=== PATIENT | female | born 1975 | race Caucasian/White ===

== ENCOUNTER 2024-05-10 08:43 | Emergency (ER) | payer SELFPAY ==
[2024-05-10] VITALS (16 sets, daily range): BP systolic 96–119; BP diastolic 58–74; PULSE 71–82; RESP 14–19; TEMP 36.4; O2SAT 99–100
--- NOTE | ~2024-05-10 | XR_ITS ---
EXAMINATION: XR chest 2V 05/10/2024 10:08 INDICATION: Cough. Syncope. PROCEDURE: 2 view chest COMPARISON: 04/27/2017 FINDINGS: The lungs are clear. The cardiomediastinal silhouette is within normal limits. There are no pleural effusions. There is no pneumothorax suspected. IMPRESSION: 1: NO ACUTE CARDIOPULMONARY DISEASE. Reviewed, dictated and finalized at location B. SETTER
--- NOTE | 2024-05-10 08:49 | ECG_ITS ---
Test Date: 2024-05-10 08:55:15 Measurements Intervals [place] Rate: 65 P: 53 OR: 182 QRS: -39 QRSD: 112 T: 32 QT: 438 QTc: 456 Interpretive Statements SINUS RHYTHM LEFT AXIS DEVIATION [QRS AXIS < -30] LOW QRS VOLTAGE IN PRECORDIAL LEADS [QRS DEFLECTION < 1.0 mV IN CHEST LEADS] INCOMPLETE RIGHT BUNDLE BRANCH BLOCK [90+ ms QRS DURATION, TERMINAL R IN V1/V2, 40+ ms S IN I/aVL/V4/V5/V6] No previous ECG available for comparison Electronically Signed On 05-11-2024 11:49:18 [employer] by Selma Drew M.D.
--- NOTE | 2024-05-10 09:01 | ED_ITS ---
HPI - Epistaxis General Chief complaint: Epistaxis Stated complaint: bloody nose followed by a syncopal episode? Time Seen by Provider: 05/10/24 09:01 Source: patient Mode of arrival: ambulatory Limitations: no limitations History of Present Illness HPI Narrative: Patient is a 48 y/o female who presents to the ED with c/o epistaxis and syncope. Patient reports she developed epistaxis from her right nare this morning after dropping her child off at school. She notes this is not abnormal for her in the wintertime when her nose gets dried out. States there was significant amount of blood and she began feeling very nauseous and lightheaded. She does note that she often gets queasy with the sight of blood. She pulled over to the side of the road where she then had a syncopal episode. Her son in the backseat stated she only lost consciousness for couple of seconds. Patient then prompted here. She states she feels fatigued currently, but otherwise denies further dizziness or lightheadedness. Her epistaxis has since resolved. Denies chest pain, significant headache, focal weakness or numbness. Related Data Allergies Allergy/AdvReac Type Severity Reaction Status Date / Time latex Allergy Unknown Unknown Verified 05/10/24 09:00 levothyroxine sodium Allergy Unknown Unknown Verified 05/10/24 09:00 Sulfa (Sulfonamide Allergy Unknown Unknown Verified 05/10/24 09:00 Antibiotics) sulfanilamide Allergy Unknown Unknown Verified 05/10/24 09:00 Review of Systems 2 Review of Systems: All systems reviewed & are unremarkable except as noted in HPI. All systems reviewed & are unremarkable except as noted in HPI and below PMFSH Family History Family History Mother Family history of mental disorder Depression Hypertension Family history of arthritis Family history of osteoporosis Father Family history of malignant neoplasm of esophagus Family history of malignant neoplasm Patient's father is Social History Social History Smoking status: Never smoker Second hand tobacco smoke exposure: No Smoking end date: 05/23/01 Alcohol intake: current Exam 2 Narrative: GENERAL: Well appearing, well-nourished, non-toxic, in no acute distress. HEAD: Normocephalic, atraumatic. ENT: Dried blood around R nare. No active epistaxis. No septal hematoma. RESPIRATORY: Airway patent, respirations nonlabored. Clear to auscultation bilaterally, no rales, rhonchi, wheezing. CARDIOVASCULAR: Regular rate and rhythm without murmurs, rubs, or gallops. MUSCULOSKELETAL: Moves all extremities. No gross deformities. SKIN: Warm, dry, normal color. NEURO: A&O X3. Speech clear. Cranial nerves II-XII grossly intact. Steady gait. No ataxic movements. No focal deficits. PSYCHIATRIC: Appropriate mood and affect. Normal interaction. Course Vital Signs Vital signs: Vital Signs Temperature 97.5 F L 05/10/24 08:49 Pulse Rate 76 05/10/24 08:49 Respiratory Rate 17 05/10/24 08:49 Blood Pressure 99/61 L 05/10/24 08:49 Pulse Oximetry 100 05/10/24 08:49 Oxygen Delivery Room Air 05/10/24 08:49 Temperature 97.5 F L 05/10/24 08:49 Pulse Rate 79 05/10/24 10:36 Respiratory Rate 18 05/10/24 10:36 Blood Pressure 116/70 05/10/24 10:36 Pulse Oximetry 100 05/10/24 10:36 Oxygen Delivery Room Air 05/10/24 08:49 MDM - Epistaxis MDM Narrative Medical decision making narrative: Patient presented to ED with epistaxis and subsequent syncopal episode. Patient mildly hypotensive upon arrival. Otherwise no acute distress. Neurovascularly intact. No active epistaxis at the time of my evaluation. Symptoms seem consistent with vasovagal episode. Patient does report that she frequently gets queasy with the sight of blood. She reported feeling nauseous, dizzy / lightheaded prior to the syncopal episode. Will initiate fluids. EKG without ischemic changes. Troponin undetectable. Laboratory studies are otherwise unremarkable. Stable H&H. Stable electrolytes. CXR is clear. Patient feeling much better after fluids. Feel she is safe for discharge home at this time. Advised to stay well hydrated at home, given strict return precautions. She agrees with plan. Discussed further epistaxis management if this recurs. Given nasal clamps to take home. Patient in agreement with plan and feels comfortable with d/c home. VSS at time of d/c. Medical Records Attestation: I reviewed the patient's medical records. Lab Data Attestation: I reviewed the patient's lab results. 05/10/24 09:24 05/10/24 09:47 Labs: Lab Results 05/10/24 05/10/24 Range/Units 09:24 09:47 WBC 7.1 (4.5-10.0) K/mm3 RBC 4.47 (4.2-5.4) M/mm3 Hgb 12.7 (12.0-15.0) g/dL Hct 38.9 (37.0-47.0) % MCV 87.0 (80-100) fl MCH 28.4 (26-34) pg MCHC 32.6 (32-36) g/dl RDW 12.8 (11.5-14.5) % Plt Count 206 (150-375) k/mm3 MPV 10.0 (7.4-10.4) fl Immature Gran % (Auto) 0.1 (0-0.5) % Neut % (Auto) 60.8 (45.5-73.1) % Lymph % (Auto) 30.4 (18.3-44.2) % [place] % (Auto) 7.5 (2.6-8.5) % Eos % (Auto) 0.8 (0-4.4) % Baso % (Auto) 0.4 (0.2-1.2) % Lymph # (Auto) 2.15 (0.9-3.2) K/mm3 [place] # (Auto) 0.5 (0.1-0.6) K/mm3 Eos # (Auto) 0.1 (0-0.3) K/mm3 Baso # (Auto) 0.0 (0.0-0.1) K/mm3 Abs Immat Gran (auto) 0.01 (0.00-0.031) K/mm3 Absolute Neuts (auto) 4.3 (1.3-6.7) K/mm3 Absolute Nucleated RBC 0.000 (0.0-0.012) K/mm3 Nucleated RBC % 0.0 (0.0-0.2) % Sodium 140 (137-145) mmol/L Potassium 3.7 (3.4-5.0) mmol/L Chloride 111 H (98-107) mmol/L Carbon Dioxide 26 (22-30) mmol/L Anion Gap 3 L (4-12) mmol/L BUN 11 (7-17) mg/dL Creatinine 0.80 (0.7-1.0) mg/dL Estim Creat Clear Calc 76 ml/min Estimated GFR > 60 (59 - ) Glucose 98 (65-110) mg/dL Calcium 8.4 (8.4-10.2) mg/dL Magnesium 2.0 (1.6-2.3) mg/dL Total Bilirubin 0.9 (0.2-1.3) mg/dL AST 19 (14-36) U/L ALT 18 (6-35) U/L Alkaline Phosphatase 34 L (38-126) U/L Troponin I < 0.012 (0.000-0.034) ng/mL Total Protein 6.0 L (6.3-8.2) g/dL Albumin 3.4 L (3.5-5.1) g/dL Imaging Data Attestation: I personally reviewed and interpreted this imaging study as follows: Radiologist's impression: ITS Impressions Chest X-Ray 05/10/24 10:19 IMPRESSION: 1: NO ACUTE CARDIOPULMONARY DISEASE. ECG Data EKG #1: Attestation: I personally reviewed and interpreted this ECG as follows: ECG completion date: 05/10/24 ECG completion time: 08:55 EKG Interpretation: normal rate (65), sinus rhythm, no ST changes and RBBB (incomplete) Discharge Plan Discharge Clinical Impression: Epistaxis, Vasovagal episode Patient Disposition: Home, Self-Care Condition: Stable Instructions: Antibiotic Form, Nosebleed (ED), Syncope (ED), Hypotension (ED) Additional Instructions: Your workup here was reassuring. Stay well hydrated at home. Avoid rubbing or blowing your nose for the next few days. Recommend humidifier or placing Vaseline inside nostrils at night to avoid drying out. You may also use nasal spray/saline spray to nose to keep moist. If bleeding recurs, utilize Afrin to nostrils and place nasal clamp for approximately 30 minutes. Do not adjust or move the clamp for at least 30 minutes. If bleeding does still persistent after 30 minutes, replace clamp for an additional 15 minutes. If bleeding is still persistent after 1 hour, return to the ED for further evaluation. Additionally, return if you experience severe pain, weakness, recurrent passing out, significant dizziness, or any other symptoms of concern. Patient Language: [place] Follow-up/Referrals: Robert,Anthony Martinez MD [Non-Staff] - Time of Disposition: 10:44
[2024-05-10] MEDS: SODIUM CHLORIDE 0.9% IV 1,000 ML 999 ML IV CONT (09:24)
[2024-05-10 09:31] LABS: Basophils Percent Auto 0.4 % (0.2-1.2); Eosinophils Absolute Auto 0.1 K/mm3 (0-0.3); Eosinophils Percent Auto 0.8 % (0-4.4); Hematocrit 38.9 % (37.0-47.0); Hemoglobin 12.7 g/dL (12.0-15.0); Immature Granulocyte Absolute 0.01 K/mm3 (0.00-0.031); Immature Granulocyte Percent A 0.1 % (0-0.5); Lymphocytes Absolute Auto 2.15 K/mm3 (0.9-3.2); Lymphocytes Percent Auto 30.4 % (18.3-44.2); Mean Corpuscular HGB Conc 32.6 g/dl (32-36); Mean Corpuscular Hemoglobin 28.4 pg (26-34); Monocytes Absolute Auto 0.5 K/mm3 (0.1-0.6); Monocytes Percent Auto 7.5 % (2.6-8.5); Neutrophils Absolute Auto 4.3 K/mm3 (1.3-6.7); Neutrophils Percent Auto 60.8 % (45.5-73.1); Platelet Count Result 206 k/mm3 (150-375); Red Blood Count 4.47 M/mm3 (4.2-5.4); Red Cell Distribution Width 12.8 % (11.5-14.5); White Blood Count 7.1 K/mm3 (4.5-10.0)
[2024-05-10 10:01] LABS: Alanine Aminotransferase 18 U/L (6-35); Albumin Level 3.4 g/dL (3.5-5.1); Alkaline Phosphatase 34 U/L (38-126); Anion Gap 3 mmol/L (4-12); Aspartate Amino Transferase 19 U/L (14-36); Bilirubin,Total 0.9 mg/dL (0.2-1.3); Blood Urea Nitrogen 11 mg/dL (7-17); Calcium 8.4 mg/dL (8.4-10.2); Carbon Dioxide 26 mmol/L (22-30); Chloride 111 mmol/L (98-107); Estimated CRCL calculation 76 ml/min; Estimated Glomerular Filt Rate > 60; Glucose 98 mg/dL (65-110); Potassium 3.7 mmol/L (3.4-5.0); Sodium 140 mmol/L (137-145)
[2024-05-10 10:12] LABS: Troponin I < 0.012 ng/mL (0.000-0.034)
== END 2024-05-10 11:35 | disposition home or self-care (01) ==
PROVIDERS: Emergency Provider Physician Assistant; PCP Nurse Practitioner
DX: R04.0 Epistaxis (principal); R55 Syncope and collapse
CPT/HCPCS: 36415; 71046; 80053; 83735; 84484; 85025; 93005; 96360; 99284; J7030